=== PATIENT | female | born 1970 | race Caucasian/White ===

== ENCOUNTER 2018-05-11 05:40 | Day surgery (SDC) | payer BC ==
[~2018-05-11] VITALS: Ht 149.9 cm; Wt 64.4 kg
--- NOTE | ~2018-05-11 | OR ---
[facility] [address] [facility] [place], [place] [address] Draft DATE OF OPERATION: 05/11/2018 SURGEON: Alex Bell MD PREOPERATIVE DIAGNOSIS: Frozen shoulder, left. POSTOPERATIVE DIAGNOSIS: Frozen shoulder, left. PROCEDURE: Left shoulder manipulation. ANESTHESIA: IV sedation. SPECIMENS AND COMPLICATIONS: There were no specimens or complications. WHAT WAS DONE: The patient was in the Day Surgery area. An IV had been started and she was sedated with some propofol by the Anesthesia Service. We then gently manipulated the shoulder into flexion, abduction and then external rotation. There was a resounding sound of adhesions releasing and we rather rapidly regained a full range of motion. The anterior aspect of the shoulder was then prepped and 8 mL of 1% xylocaine and 2 mL of Depo-Medrol were then injected into the shoulder joint. A Band-Aid was applied and she was awakened. Alex Bell MD WFB/MODL /[id number] PATIENT NAME: TESSIE APPLE OPERATIVE REPORT DATE OF : 70 REPORT #: [id number] PHYSICIAN: ALEX BELL MD PCP: TREVON BECKFORD NP REPORT IS CONFIDENTIAL AND NOT TO BE RELEASED WITHOUT AUTHORIZATION [address] [place], [place] [address] Draft Copies: ~ PATIENT NAME: TESSIE APPLE OPERATIVE REPORT DATE OF : 70 REPORT #: [id number] PHYSICIAN: ALEX BELL MD PCP: TREVON BECKFORD NP REPORT IS CONFIDENTIAL AND NOT TO BE RELEASED WITHOUT AUTHORIZATION
[~2018-05-11 05:40] MED LIST: ASPIRIN EC81 MG PO; CHROMIUM PICO200 MCG PO; CIMETIDINE800 MG PO; FLONASE ALLERG9.9 ML NAS; IRON325 M1 PO; LOSARTAN-HCTZ1 EACH PO; NORCO 10-325 T1 EACH PO; NOVOLOG100 UNITS/ SQ; PLAVIX75 MG PO; PRENATAL CAPLE1 EACH PO; SIMVASTATIN40 MG PO; TUMERIC; VICODIN 5-3001 EACH PO; VITAMIN D50000 UNI1 PO; ZANAFLEX2 M1 PO; [UNRECOGNIZED DRUG - OTHER]
== END 2018-05-11 07:50 | disposition home or self-care (01) ==
LOC: DS 05:40 → OPS 05:40 → DS 06:45 → OPS 06:45
PROVIDERS: Orthopaedic Surgery
PROC: 3E0U3BZ Introduction of Anesthetic Agent into Joints, Percutaneous Approach (ICD-10-PCS; 2018-05-11)
PROC: 3E0U33Z Introduction of Anti-inflammatory into Joints, Percutaneous Approach (ICD-10-PCS; 2018-05-11)
PROC: 0RNKXZZ Release Left Shoulder Joint, External Approach (ICD-10-PCS; principal; 2018-05-11 06:45)
DX: M75.02 Adhesive capsulitis of left shoulder (principal); I25.2 Old myocardial infarction; E11.9 Type 2 diabetes mellitus without complications; Z96.41 Presence of insulin pump (external) (internal); Z79.51 Long term (current) use of inhaled steroids; Z79.82 Long term (current) use of aspirin; Z79.899 Other long term (current) drug therapy; Z87.891 Personal history of nicotine dependence
CPT/HCPCS: 01620; J2250; J2704; J3010; J3301; J7120